=== PATIENT | male | born 1995 | race Caucasian/White ===

== ENCOUNTER 2017-11-17 12:46 | Emergency (ER) | payer MEDICAID, OTHER ==
[2017-11-17 12:54] VITALS: BP 128/94
--- NOTE | 2017-11-17 13:03 | EDPHY ---
General Time Seen by Provider: 11/17/17 12:52 Narrative: CHIEF COMPLAINT: "I need more Xanax" HISTORY OF PRESENT ILLNESS: Patient presents with complaints of needing more xanax medication refill. He states he has a history of anxiety that is very poorly controlled. He has been taking Xanax 1 mg 4 times daily for the past year. He states that he has been traveling to [place] over the past 3 months, return 2 weeks ago. He says that he has run out of his medication. He was seen by primary care physician back in June with prescription. [place] [facility] [place], with a reportedly gave him 5 more pills of Xanax. He is not requesting refill of this as he does not have a primary care physician at this time. He states he has been very anxious but no suicidal ideation or homicidal ideation. He says that does not have an ID and has no insurance. No other associated complaints or modifying factors. REVIEW OF SYSTEMS: Ten systems reviewed and are negative unless otherwise noted in the HPI PCP: None currently. Previously Dr. Vick in [facility] SPECIALISTS: None PAST MEDICAL HISTORY: Anxiety PAST SURGICAL HISTORY: No surgical history SOCIAL HISTORY: Daily smoker. Occasional alcohol use. Currently living with friends until he travels to [place] in November. FAMILY HISTORY: Noncontributory EXAMINATION General Appearance: Alert, no distress. Fidgeting and anxious. Head: normocephalic, atraumatic Eyes: Pupils equal and round, no conjunctival pallor or injection ENT, Mouth: Mucous membranes moist Neck: Normal inspection, supple, non-tender Respiratory: No retractions or distress. Cardiovascular: Regular rate, good signs of perfusion Neurological: GCS 15. A&O, nonfocal, normal gait Skin: Warm and dry, no rash Psychiatric: Anxious mood and affect. Fidgeting. Exhibiting evidence of benzodiazepine dependence. DIFFERENTIAL DIAGNOSES: Including but not limited to benzodiazepine dependence, anxiety, stress, drug- seeking MDM: 12:55 p.m. Patient visit for Medication refill request for Xanax 1mg. Patient does exhibit anxious behavior but has a very complicated recent prescription history. I have verified his prescription history. Patient does not have his ID with him and says that his friend is been filling his medications. He does exhibit concern to me for benzodiazepine abuse. I am not comfortable writing him Xanax due to the potential for abuse with this medication. However, he is dependent on benzos as being, thus I do not want him to proceed into withdrawals or seizure. Thus I informed him that I will write him a short course of Klonopin and stressed the importance of him needing to follow up with primary care physician for further medication. I discussed that it is inappropriate for him to return to emergency department for refill medications as he has not made any effort to obtain a primary care physician. However, informed that he is always welcome to return to the emergency department if he feels that his symptoms worsen. I have answered all his questions. He is discharged in stable condition SUPERVISION: This patient was independently evaluated without direct involvement of or examination by the attending physician. - Objective Vital Signs: Initial Vital Signs Temperature (C) 98.2 F 11/17/17 12:51 Heart Rate 102 H 11/17/17 12:51 Respiratory Rate 16 11/17/17 12:51 Blood Pressure 128/94 H 11/17/17 12:51 O2 Sat (%) 97 11/17/17 12:51 O2 Delivery Mode Room Air Allergies/Adverse Reactions: No Known Allergies Allergy (Unverified 11/17/17 12:54) Home Medications: Medication Instructions Recorded clonazePAM [klonoPIN (*)] 1 mg PO TID #6 tab 11/17/17 Departure - Departure Disposition: Home, Routine, Self-Care Clinical Impression: Anxiety, Benzodiazepine dependence, continuous Condition: Good Instructions: Anxiety (ED) Additional Instructions: 1. Medication as prescribed for anxiety 2. You must contacted primary care physician for further prescriptions. You must do so quickly to the do not run out medication as you would be at risk for seizures. 3. You may always return to emergency department for re-evaluation and treatment Referrals: JOVANNI VICK [Other] - As per Instructions [facility],. [Clinic] - As per Instructions Prescriptions: clonazePAM [klonoPIN (*)] 1 mg PO TID #6 tab
== END 2017-11-17 13:26 | disposition home or self-care (01) ==
DX: F41.9 Anxiety disorder, unspecified (principal); F13.20 Sedative, hypnotic or anxiolytic dependence, uncomplicated; F17.200 Nicotine dependence, unspecified, uncomplicated